=== PATIENT | female | born 1990 | race Caucasian/White ===

== ENCOUNTER 2019-04-17 05:51 | Day surgery (SDC) | payer MEDICAID, SELFPAY ==
[2019-04-14 14:12] VITALS: BMI 28.1
[2019-04-17] VITALS (11 sets, daily range): BP systolic 122–145; BP diastolic 79–99; PULSE 63–104; RESP 16–20; TEMP 36.1–37.4; O2SAT 94–100
[2019-04-17 06:16] LABS: OR HCG Qualitative Urine Negative (Negative)
--- NOTE | 2019-04-17 06:31 | ANES.PREANES ---
Pre-Anesthetic Assessment Pre-Anesthetic Assessment: Height/Weight: Height 1.7 m Weight 81.647 kg Temp Pulse Resp BP Pulse Ox 99.3 F 104 H 18 145/96 98 04/17/19 06:23 04/17/19 06:23 04/17/19 06:23 04/17/19 06:23 04/17/19 06:23 Preop Diagnosis: Cholelithiasis Proposed Procedure: Operation Date: 04/17/19 07:15 Proposed Procedures p Laparoscopic Cholecystectomy 41515 K80.20(Not Applicable) - Juan Carlos Ortiz MD Familial anesthetic complications: NO history of trouble Was Beta Dorian taken within 24 hours: N/A Last intake: Intake Last Liquid Date 04/16/19 Last Liquid Time 23:30 Last Solid Date 04/16/19 Last Solid Time 23:30 Social: Social History: No alcohol and No tobacco Exam: Pre-Anes Outpt Exam: alert, oriented x 3, clear to auscultation bilaterally and regular rate & rhythm Airway: Cervical ROM: WNL MP: 2 Dentition: Full Pulmonary: Pulmonary: None reported CV/HEM: CV/HEM: None reported : : None reported Hepatic: Hepatic: None reported GI: GI: GERD and Hiatus hernia Metabolic: Metabolic: None reported Musc/skel: Musc/skel: None reported Neuropsych: Neuropsych: None reported Anesthetic Plan: ASA status: II Anesthesia: General Risk of > 500 ml blood loss (7ml/kg in children): No PFSH Anesthesia PFSH: Social History Smoking and tobacco status: never smoked Alcohol intake: never Marital status: Single Current occupational status: unemployed Data Anesthesia Other Labs: Laboratory Results - last 48 hr 04/17/19 06:10 Urine HCG, Qual Negative Cardiac Studies: No Data to Display
[2019-04-17] MEDS: sodium chloride 0.9% 1,000 ML 30 ML IV (06:39)
--- NOTE | 2019-04-17 07:04 | PM.HPUD ---
H&P update H&P Update: DATE OF SURGERY/PROCEDURE: 04/17/19 DATE H&P PERFORMED: 04/11/19 H&P UPDATE INFORMATION: H&P completed within last 30 days and No changes to prior documentation PLANNED PROCEDURE: Operation Date: 04/17/19 07:15 Proposed Procedures p Laparoscopic Cholecystectomy 08711 K80.20(Not Applicable) - Juan Carlos Ortiz MD Full H&P Medications/Allergies: Current Medications: Current Medications Generic Name Dose Route Start Last Admin Trade Name Freq PRN Reason Stop Dose Admin Sodium Chloride 1,000 mls @ 30 ml s/hr 04/17/19 06:30 04/17/19 06:39 Sodium Chloride 0.9% IV 04/18/19 06:29 30 mls/hr .Q24H MIGUEL Administration Perinent History: Medical/Surgical History: Medical History (Updated 04/13/19 @ 09:42 by Juan Carlos Ortiz MD) Cholelithiasis (Acute) History of methamphetamine use (Acute) Orbital cellulitis on right (Acute) Family History: Family History (Updated 04/13/19 @ 08:56 by Niecy Joyce LPN) Mother Cancer skin cancer Sister Cancer breast Diabetes Father Diabetes Other CAD (coronary artery disease) Denies family history of Anesthesia complication Bleeding disorder Social History: Social History Smoking and tobacco status: never smoked Alcohol intake: never Marital status: Single Current occupational status: unemployed
--- NOTE | 2019-04-17 08:43 | PM.OP ---
Operative Report Post-Operative Note Date of procedure: 04/17/19 Preop Diagnosis: Symptomatic cholelithiasis Post-op Findings: Cholelithiasis with acute on chronic cholecystitis Procedure Done: Laparoscopic cholecystectomy Specimens removed/disposition: Gallbladder Surgeon: Juan Carlos Ortiz Anesthesia: general Estimated blood loss (mL): 25 Complications: None Condition: stable Disposition: PACU Operative Report Procedure: The patient was taken to the operating room and was intubated under general anesthesia. After the antibiotic had been administered, the abdomen was prepped and draped in a sterile manner. Using a #15 blade, a 1 centimeter infraumbilical curvilinear incision was made and using an open Claudine technique the peritoneal cavity was entered. A 10 millimeter port was placed and 15 millimeters of pneumoperitoneum was created. A 10 millimeter, 30 degrees scope was then introduced. Three 5 millimeter ports were placed in the epigastric, midclavicular and the anterior axillary line two fingerbreadths below the costal margin on the right side under the direct visualization. Ratcheted forceps were introduced into the lateral most port and was used to retract the fundus of the gallbladder cephalad and using forceps the infundibulum of the gallbladder was retracted laterally. The gallbladder wall was chronically inflamed and thickened with superimposed acute cholecystitis. Using L-hook cautery the peritoneum overlying the Calot's triangle was opened medially and laterally until the cystic duct and the cystic artery were skeletonized. Dissection was carried along the body of the gallbladder and after ensuring critical view of safety, 4 clips applied on the cystic duct and 3 clips applied on the cystic artery and cut leaving, 3 clips on the remaining portion of the duct and 2 clips on the remaining portion of the artery. The rest of the gallbladder was dissected off the liver using L-hook cautery. There was no bleeding or bile leaking noted from the gallbladder fossa and the clips appeared to be in place. An EndoCatch bag was introduced to remove the gallbladder. All the ports were removed under direct visualization and there was no bleeding noted from the port sites. The fascia of the umbilicus was closed using [id number] 0 Vicryl sutures and the subcutaneous tissue was approximated using 3-0 Vicryl sutures. The skin at all four ports were closed using 4-0 Monocryl and Dermabond. A total of 10 millimeters of 0.5% Marcaine was infiltrated around the port sites. The patient was stable throughout the procedure.
--- NOTE | 2019-04-17 09:02 | SUR.PHASEI ---
pt sleeps with good resp effort noted VSS ABD SOFT WITH 4 SITES D/I
[2019-04-17] MEDS: fentaNYL 50 mcg/mL INJ 2mL IVP (09:07)
[2019-04-17] MEDS: ondansetron 2 mg/ML SDV 2 mL 4 MG IVP (09:10)
[2019-04-17] MEDS: HYDROcodone-acetaminophen 5-325 mg Tablet 1 TAB PO (09:45)
--- NOTE | 2019-04-17 09:56 | ANE.PACU ---
 Inpatient post-anesthesia follow up: Airway intact: Yes Vital signs: Temperature 97.0 F Pulse Rate [Left R adial] 89 Respiratory Rate 18 Blood Pressure [Ri ght Arm] 129/88 Blood Pressure [Le ft Arm] 134/85 Pulse Oximetry 96 Oxygen Delivery Me thod Room Air Oxygen Flow Rate 8 Fraction of Inspir ed Oxygen Hydration adequate: Yes Nausea and vomiting: No Pain level: 1 Mental status: Baseline
[2019-04-17] MEDS: morphine 4 mg/mL SDV 1 mL IVP (10:18)
== END 2019-04-17 11:20 | disposition home or self-care (01) ==
PROVIDERS: Visit Provider Surgery
PROC: 0FT44ZZ Resection of Gallbladder, Percutaneous Endoscopic Approach (ICD-10-PCS; CPT 47562; principal; 2019-04-17 07:15)
DX: K80.10 Calculus of gallbladder with chronic cholecystitis without obstruction (principal); Z82.49 Family history of ischemic heart disease and other diseases of the circulatory system; Z83.3 Family history of diabetes mellitus
CPT/HCPCS: 47562; 81025; 84703; 88304; 96365; 96374; J0330; J0690; J1100; J1885; J2001; J2250; J2270; J2405; J2704; J2710; J3010; J3490; J7030

== ENCOUNTER 2019-04-28 03:35 | Emergency (ER) | payer MEDICAID, SELFPAY ==
[2019-04-28 03:36] VITALS: BP 109/72; PULSE 95; RESP 15; TEMP 36.9; O2SAT 98; BMI 28.8
--- NOTE | 2019-04-28 04:23 | P.HP_ITS ---
Providers/Chief Complaint Chief Complaint: abdominal abcess History of Present Illness Dayanara Baires is a 28 year old female who had laparoscopic cholecystectomy on 04/17/[address] Ortiz and was discharged home. 24 hours before her presentation to [facility] ER she started having abdominal pain associate with nausea and vomiting she has had 5-10 episodes of emesis which was bilious in nature containing food particles without any blood. She noticed temperature 100.4 at home. She is also endorsing dysuria. She is denying chest pain shortness of breath, diarrhea, constipation. Diagnostic at [facility] ER showed temperature 98.3, heart rate 123, respiratory rate 16, blood pressure 123/80 saturating 98% on room air White count 7.4 Hemoglobin 14.5 Platelet 346 Sodium 133 Potassium 3.6 Chloride 98 CO2 24 Calcium 9.2 BUN 10 Creatinine 0.6 Glucose 107 Bilirubin 1.6 Alkaline phosphatase 99 AST 15 ALT 21 Urinalysis showed paramjit color urine cloudy with positive nitrites U tox is positive for methamphetamine Urine hCG qualitative test negative for CT abdomen pelvis with contrast showed: 3.8 x 2.4 x 3 cm rim-enhancing fluid collection in the gallbladder fossa with surrounding edema and concern for postsurgical abscess, Patient had received Zosyn, normal saline 1 L, Toradol 30 mg IV, Zofran 4 mg IV, Patient was sent to our ER, on arrival patient was afebrile, blood pressure 120/60, she was not complaining abdominal pain and was asking for water, Review of Systems Const: Reports: fever, chills and body aches Eyes: Denies: change in vision ENMT: Denies: throat pain Card: Denies: chest pain Resp: Denies: shortness of breath GI: Reports: abdominal pain, nausea and vomiting; Denies: constipation or bloating : Reports: difficulty urinating and painful urination; Denies: flank pain Musc: Denies: neck pain or back pain Skin/Breast: Denies: rash or itching Neuro: Denies: headache Psych: Denies: anxiety Endo: Denies: excessive urination Chas/Lymph: Denies: easy bruising All/Imm: Denies: hives Medications/Allergies Allergies Allergy/AdvReac Type Severity Reaction Status Date / Time codeine Allergy ADR-Vomitin Verified 04/12/19 14:34 g PFSH Acute PFSH: Statuses (acute, chronic, etc) shown below reflect problem list status as previously entered and may not be historically accurate Medical History (Updated 04/28/19 @ 04:53 by Eliecer Pantoja MD) Cholelithiasis (Resolved) History of methamphetamine use (Acute) Orbital cellulitis on right (Acute) Surgical History (Updated 04/17/19 @ 07:37 by Juan Carlos Ortiz MD) H/O foot surgery (Acute) Status post laparoscopic cholecystectomy (Acute) Social History (Updated 04/28/19 @ 04:51 by Eliecer Pantoja MD) Smoking and tobacco status: never smoked Alcohol intake: never Substance/Drug Use: current Substance/Drug use type: Methamphetamine Marital status: Single Current occupational status: unemployed Female Reporductive History: Date of last menstrual period: 04/05/19 Vitals/I&O/Wt Last Vital Signs Temp 98.5 F 04/28/19 03:36 Pulse 95 04/28/19 03:36 Resp 15 04/28/19 03:36 BP 109/72 04/28/19 03:36 Pulse Ox 98 04/28/19 03:36 Weight last 48 hrs Weight 83.461 kg Physical Exam Narrative: EXAM NARRATIVE: Young female lying comfortably in her bed Awake alert oriented x3 GCS 15 S1-S2 no signs of murmur JVD or signs of heart failure Lungs are clear to auscultation Abdomen: Has petechiae and bruises around surgical site, no active bleeding, mild tenderness on deep palpation around surgical site otherwise abdomen is soft without any signs of peritonitis, bowel sounds present Extremities shows no signs of ischemia gangrene ulcer EOMI, PERRLA She has body tattoos Appropriate mood and affect A&P Assessment and plan (1) Status post laparoscopic cholecystectomy: Status: Acute Code(s): Z90.49 - Acquired absence of other specified parts of digestive tract (2) Postoperative abscess: Status: Acute Code(s): T81.49XA - Infection following a procedure, other surgical site, initial encounter (3) Hypokalemia: Status: Acute Code(s): E87.6 - Hypokalemia (4) UTI (urinary tract infection): Status: Acute Code(s): N39.0 - Urinary tract infection, site not specified (5) Polysubstance abuse: Status: Acute Code(s): F19.10 - Other psychoactive substance abuse, uncomplicated Additional A&P Information Abdominal pain associated nausea vomiting due to post operative abscess formation Patient had laparoscopic cholecystectomy, no active signs of peritonitis Patient is afebrile, no leukocytosis, she is not septic We will consult general surgery N.p.o. Zosyn with IV fluid resuscitation UTI: We will treat her with Zosyn Methamphetamine positive U tox: No active signs of withdrawal patient is not tachycardic or hypertensive DVT prophylaxis: Not needed as she will go to the OR GI prophylaxis: Protonix Full code Attestations Medical Necessity Statement*: Anticipating her stay to extend more than 2 midnights for treatment of post operative abscess Time Spent in Patient Care: 45 Coding Level of Care Code Acute Registered Private Duty Nurse for Atilio Viera Diagnoses Status post laparoscopic cholecystectomy Z90.49 Postoperative abscess T81.49XA Hypokalemia E87.6 UTI (urinary tract infection) N39.0 Polysubstance abuse F19.10
[2019-04-28 05:20] LABS: Basophils % 0.2 %; Eosinophils # 0.4 10^3/uL (0.0-0.8); Eosinophils % 8.7 %; Hematocrit 37.4 % (37.0-47.0); Hemoglobin 12.3 g/dL (11.5-15.3); Lymphocytes # 1.2 10^3/uL (0.8-4.8); Lymphocytes % 27.6 %; Mean Corpuscular HGB Conc 32.9 g/dL (30.0-36.0); Mean Corpuscular Hemoglobin 30.4 pg (28.0-34.0); Mean Corpuscular Volume 92.3 fL (81-99); Mean Platelet Volume 8.7 fL (7.4-10.4); Monocytes # 0.5 10^3/uL (0.2-0.9); Monocytes % 12.6 %; Neutrophils # 2.2 10^3/uL (1.8-7.7); Neutrophils % 50.9 %; Nucleated Red Blood Cells % 0 %; Platelet Count 283 10^3/cmm (130-400); Red Blood Count 4.05 10^6/uL (4.1-5.3); Red Cell Distribution Width 12.5 % (12.1-15.1); White Blood Count 4.3 10^3/uL (4.0-10.0)
[2019-04-28 05:34] LABS: Lactic Acid 0.6 mmol/L (0.5-2.2)
[2019-04-28 05:35] LABS: Alanine Aminotransferase 17 U/L (0-33); Albumin Level 3.7 g/dL (3.5-5.2); Alkaline Phosphatase 82 IU/L (35-105); Anion Gap 12.4 (5-19); Aspartate Amino Transferase 12 U/L (0-32); Blood Urea Nitrogen 8 mg/dL (6-20); Calcium 8.7 mg/dL (8.5-10.5); Carbon Dioxide 24 mmol/L (22-29); Chloride 102 mmol/L (98-107); Globulin 2.1 g/dL (1.3-4.6); Glomerular Filtration Rate 117.4 mL/min (90-130); Glucose 105 mg/dL (74-109); Potassium 3.4 mmol/L (3.5-5.1); Sodium 135 mmol/L (136-145); Total Bilirubin 1.6 mg/dL (0.15-1.2); Total Protein 5.8 g/dL (6.6-8.7)
[2019-04-28 05:37] VITALS: PULSE 94; RESP 16; O2SAT 98
--- NOTE | 2019-04-28 06:36 | NM_ITS ---
WS: [id number] NUCLEAR MEDICINE HIDA SCAN HISTORY: bile leak post op COMPARISON: CT abdomen 04/28/2019 TECHNIQUE: The patient was intravenously injected with 7.6 mCi of TC99m Mebrofenin. Immediate imaging over the right upper quadrant was followed by 5 minute image and additional images for a total of 60 minutes. Normal uptake of radiotracer throughout the liver. No activity is identified in the gallbladder consistent with a history of prior cholecystectomy. Activity in the proximal small bowel was seen by 15 minutes. Good washout of the radiotracer from the liver by 80 minutes. The radiotracer courses along the expected location of the common bile duct into the duodenal C-loop. No radiotracer courses along the undersurface of the liver or in the expected location of the gallbl adder fossa. NM/NM hepatobiliary wo phar [id number] IMPRESSION: 1. No evidence for biliary leak status post cholecystectomy on this examinatio n. 2. Normal excretion with no common bile duct obstruction.
[2019-04-28 06:47] VITALS: BP 120/71; PULSE 96; O2SAT 100
--- NOTE | 2019-04-28 08:37 | PC.NURSE ---
Patient returned from radiology.
[2019-04-28] MEDS: piperacillin-tazobactam 3.375 GM in sodium chloride 0.9% (plus) 50 ML IV (12:56)
--- NOTE | 2019-04-28 14:22 | P.DS_ITS ---
Discharge Providers Date of Discharge: 04/28/19 Attending Provider at Discharge: Elizabeth Burnett MD Diagnoses at Discharge Discharge Diagnosis (1) Status post laparoscopic cholecystectomy: Status: Acute (2) UTI (urinary tract infection): Status: Acute Reason for Visit Reason for Visit: Reason For Visit: abdominal [facility] Course Discharge Summary: Dayanara Baires is a 28 year old female who had laparoscopic cholecystectomy on 04/17/[address] Ortiz and was discharged home. She presented to [facility] with complains of multiple episodes of vomiting. She states that she started to experience multiple episodes of vomiting around the same time with multiple other sick contacts at home. Her young daughter and mother were also having the same symptoms. She did not have any diarrhea. She said that her temperature at that time been around 99F, however she does not recall this exactly. After having multiple bouts of vomiting she noticed pain,but this is more in the right the right flank and RLQ area. She denies any pain in the right upper quadrant area. These symptoms took her to [place] ER. A CT scan was performed which showed a collection in the gallbladder fossa which was read as rim-enhancing,, raising concern for abscess. She underwent a HIDA scan today to look for any biliary leaks, however the test is negative for the same. Given that she has remained afebrile, hemodynamically stable, has not had vomiting in ~48hrs, no further abdominal pain, no leukocytosis, and is otherwise clinically well-appearing overall, resolution of symptoms prior to receving any directed treatment, I do not think that her gallbladder fossa collection represents a true abscess. Since she is only about 10 days out of surgery this could very well likely be a seroma. UA was also noted to have positive nitrites at the outside hospital. This was not repeated here. Her symptoms may be related to a urinary tract infection/acute cystitis or a viral gastroentritis. We will obtain UA and urine cx which may be followed up at discharge. Given that she is stable we will plan to discharge her on ciprofloxacin for now over the next 3 days. She has a follow-up appointment with Dr. Ortiz on Wednesday the . She has been instructed that in case she starts to have any high- grade fevers, chills, recurrent abdominal pain, marked vomiting or diarrhea. Sh e is to return to her nearest ER or urgent care. Above plan was discussed with Dr. Jorge Ortiz as well. Physical Exam Narrative: EXAM NARRATIVE: GEN: Awake, alert and oriented, no acute distress, appears well overall CVS: S1S2 N RS: CTA B/L, no added sounds Abd: Soft, nt/nd , bs+ CATCHER FILTER TIP: no focal neuro deficits Discharge Data Data Completed and Pending: Completed Studies During Hospitalization Category Date Time Status NM hepatobiliary wo phar [id number] Stat Nuc Med 04/28/19 06:36 Completed Pending at discharge Category Date Time Status Urinalysis Stat Lab 04/28/19 14:18 Uncollected Labs from last 24 hours 04/28/19 04/28/19 04/28/19 05:15 05:15 05:15 WBC 4.3 RBC 4.05 L Hgb 12.3 Hct 37.4 MCV 92.3 MCH 30.4 MCHC 32.9 RDW 12.5 Plt Count 283 MPV 8.7 Neut % (Auto) 50.9 Lymph % (Auto) 27.6 [place] % (Auto) 12.6 Eos % (Auto) 8.7 Baso % (Auto) 0.2 Neut # (Auto) 2.2 Lymph # (Auto) 1.2 [place] # (Auto) 0.5 Eos # (Auto) 0.4 Baso # (Auto) 0.0 Nucleated RBC % (a uto) 0 Nucleated RBCs # 0.0 Sodium 135 L Potassium 3.4 L Chloride 102 Carbon Dioxide 24 Anion Gap 12.4 BUN 8 Creatinine 0.6 GFR Calculation 117.4 Glucose 105 Lactic Acid 0.6 Calcium 8.7 Total Bilirubin 1.6 H AST 12 ALT 17 Alkaline Phosphata se 82 Total Protein 5.8 L Albumin 3.7 Globulin 2.1 Vitals: Last Vital Signs Temp 98.5 F 04/28/19 03:36 Pulse 96 04/28/19 06:47 Resp 16 04/28/19 05:37 BP 120/71 04/28/19 06:47 Pulse Ox 100 04/28/19 06:47 Discharge Plan Discharge Patient Disposition: Home, Self-Care Clinical Impression: Gastroenteritis UTI (urinary tract infection) Qualifiers: Urinary tract infection type: acute cystitis Hematuria presence: without hematuria Qualified Code(s): N30.00 - Acute cystitis without hematuria Condition: Stable Prescriptions: New ciprofloxacin HCl 500 mg tablet 500 mg PO BID 3 Days Qty: 6 RF: 0 Continued Nexplanon 68 mg Implant See Rx Instructions .ROUTE .COMPLEX RF: 0 Discharge Orders: Discharge Order (Routine); Ordered 04/28/19 Ordered By: Elizabeth Burnett Referrals: Juan Carlos Ortiz MD [Physician] - 05/01/19 Discharge Diet: Usual diet Discharge Activity: Resume usual activity Discharge Attestations Time Spent in Discharge Care*: greater than 30 min Quality Metrics Clinical Quality Measures During this hospital stay, did patient experience: None Coding Level of Care Code 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
[2019-04-28 15:20] VITALS: BP 110/68; PULSE 68; RESP 17; O2SAT 97
[2019-04-28 15:53] LABS: Add Urine Microscopic? YES; Bilirubin Urine Neg (NEGATIVE); Blood Urine Neg (Negative); Glucose Urine UA Norm (Normal); Ketones Urine Negative (Negative); Leukocyte Esterase Urine Negative (Negative); Nitrate Urine Negative (Negative); Protein Urine Trace (Negative); Urine Appearance SL Hazy (CLEAR); Urine Color Yellow (Yellow); Urobilinogen Urine Norm (Negative)
[2019-04-28 16:02] LABS: Hyaline Casts Urine RARE; Mucus Urine 1+
[2019-04-28 16:03] LABS: Amorphous Sediment Urine 2+; Bacteria Urine 1+; RBC Urine 0-4 /hpf (0-2)
[2019-04-28 16:04] LABS: Add Urine Culture? No
--- NOTE | 2019-05-01 10:46 | DCPLANNER ---
entry level assistant manager had message to schedule a follow up appointment for patient with general surgery, Dr. Ortiz. entry level assistant manager called [facility], spoke with Zoila. Patient has an appointment scheduled for Wednesday, May 01, [address] Ortiz.
--- NOTE | 2019-05-03 15:47 | DCPLANNER ---
Patient did attend follow up scheduled for 05.01.19 with [facility].
== END 2019-04-28 15:21 | disposition home or self-care (01) ==
PROVIDERS: Internal Medicine; Emergency Provider Family Medicine; Visit Provider Student in an Organized Health Care Education/Training Program
DX: K52.9 Noninfective gastroenteritis and colitis, unspecified (principal); N30.00 Acute cystitis without hematuria; Z98.890 Other specified postprocedural states; E87.6 Hypokalemia; F19.10 Other psychoactive substance abuse, uncomplicated
CPT/HCPCS: 12345; 36415; 78226; 80053; 81001; 83605; 85025; 96365; 99282; A9537; J2543

== ENCOUNTER → 2021-08-04 13:54 | Outpatient (BNVA) | payer BC, MEDICAID, SELFPAY | PROVIDERS: Visit Provider Specialist | DX: S80.01XA Contusion of right knee, initial encounter (principal); W01.0XXA Fall on same level from slipping, tripping and stumbling without subsequent striking against object, initial encounter; M25.561 Pain in right knee | CPT/HCPCS: 73560; 73565; 99203 ==

== ENCOUNTER → 2025-02-23 14:19 | Outpatient (BNVA) | payer BC, MEDICAID, SELFPAY | PROVIDERS: Visit Provider Obstetrics & Gynecology | DX: Z30.017 Encounter for initial prescription of implantable subdermal contraceptive (principal) | CPT/HCPCS: 81025 ==